=== PATIENT | female | born 1970 | race Caucasian/White ===

== ENCOUNTER 2022-09-20 02:46 | Emergency (ER) | payer MEDICAID ==
[~2022-09-20] VITALS: Ht 154.9 cm; Wt 65.3 kg
--- NOTE | 2022-09-20 02:53 | NUR ---
martina, c/o high bp, "i stopped taking my meds because it doesn't help"
[2022-09-20] MEDS ORDERED: hydrALAZINE HCL IV 20 MG VIAL ONE (03:10)
--- NOTE | 2022-09-20 03:29 | NUR ---
Hydralazine 5mg given as ordered.
[2022-09-20] MEDS ORDERED: hydrALAZINE HCL IV 20 MG VIAL IV ONE (03:30)
[2022-09-20 03:32] LABS: BASOPHILS # (AUTO) 0.1 K/uL (0.0-0.2); BASOPHILS % (AUTO) 1.1 % (0.0-2.0); EOSINOPHILS % (AUTO) 4.6 % (0.0-6.0); HEMATOCRIT 40 % (33-45); HEMOGLOBIN 13.6 g/dL (11.5-14.8); LYMPHOCYTES # (AUTO) 1.3 K/uL (0.8-4.8); LYMPHOCYTES % (AUTO) 25.4 % (20.0-44.0); MEAN CORPUSCULAR HGB CONC 34 g/dl (31.0-36.0); MEAN CORPUSCULAR VOLUME 87 fL (82-100); MONOCYTES # (AUTO) 0.4 K/uL (0.1-1.30); NEUTROPHILS # (AUTO) 3.2 K/uL (1.8-8.9); NEUTROPHILS % (AUTO) 61.9 % (43.0-81.0); PLATELET COUNT (AUTO) 180 K/uL (150-450); RED BLOOD CELL COUNT(AUTO) 4.57 MIL/uL (4.0-5.2); WHITE BLOOD COUNT (AUTO) 5.2 K/uL (4.3-11.0)
[2022-09-20 03:33] LABS: BILIRUBIN,URINE NEGATIVE (NEGATIVE); COLOR,URINE YELLOW (YELLOW); LEUKOCYTE ESTERASE ,URINE NEGATIVE (NEGATIVE); NITRITE, URINE NEGATIVE (NEGATIVE); PROTEIN,URINE NEGATIVE (NEGATIVE); UGLUCOSE NEGATIVE (NEGATIVE); UROBILINOGEN,URINE 0.2 EU/dL (0.2)
[2022-09-20 03:42] LABS: CALCIUM, SERUM 8.9 mg/dL (8.5-10.1); CARBON DIOXIDE 24 mmol/L (21-32); CHLORIDE 106 mmol/L (98-107); CREATININE 0.6 mg/dL (0.6-1.3); GLUCOSE 109 mg/dL (74-106); POTASSIUM 3.5 mmol/L (3.5-5.1); SODIUM SERUM 138 mmol/L (136-145); UREA NITROGEN, BLOOD 15 mg/dL (7-18)
[2022-09-20 03:47] LABS: ALANINE AMINOTRANSFERASE 21 U/L (12-78); ALBUMIN 3.9 g/dL (3.4-5.0); ALKALINE PHOSPHATASE 48 U/L (46-116); ASPARTATE AMINOTRANSFERASE 16 U/L (15-37); BILIRUBIN,DIRECT 0.1 mg/dL (0.0-0.2); BILIRUBIN,TOTAL 0.3 mg/dL (0.2-1.0); TOTAL PROTEIN, SERUM 7.1 g/dL (6.4-8.2)
--- NOTE | 2022-09-20 06:43 | NUR ---
Patient discharged to home in stable condition. Written and verbal after care instructions given. Patient verbalizes understanding of instruction.
[2022-09-20 06:44] VITALS: BP 142/93
== END 2022-09-20 06:44 | disposition home or self-care (01) ==
LOC: ER 02:52
DX: I16.0 Hypertensive urgency (principal); Z91.148 Patient's other noncompliance with medication regimen for other reason
CPT/HCPCS: 99285; 96374; 71045; 93005; 85025; 80048; 80076; 81003; 36415; 84484 ×2; 85730; J0360

== ENCOUNTER 2022-09-23 01:35 | Emergency (ER) | payer MEDICAID ==
[~2022-09-23] VITALS: Ht 154.9 cm; Wt 65.3 kg
--- NOTE | 2022-09-23 01:35 | NUR ---
[id number] from home c/o high bp. states new med not working
--- NOTE | 2022-09-23 01:58 | NUR ---
DR. TERRY AT BEDSIDE
--- NOTE | 2022-09-23 02:07 | NUR ---
X-RAY AT BEDSIDE
[2022-09-23] MEDS ORDERED: MECLIZINE HCL 25 MG TABLET ONE (02:15)
--- NOTE | 2022-09-23 02:20 | NUR ---
LAB AT BEDSIDE
[2022-09-23] MEDS ORDERED: MECLIZINE HCL 12.5 MG TABLET PO ONE (02:30)
[2022-09-23 02:33] LABS: BASOPHILS % (AUTO) 0.9 % (0.0-2.0); EOSINOPHILS % (AUTO) 3.8 % (0.0-6.0); HEMATOCRIT 39 % (33-45); HEMOGLOBIN 13.1 g/dL (11.5-14.8); LYMPHOCYTES # (AUTO) 1.5 K/uL (0.8-4.8); LYMPHOCYTES % (AUTO) 26.7 % (20.0-44.0); MEAN CORPUSCULAR HGB CONC 34 g/dl (31.0-36.0); MEAN CORPUSCULAR VOLUME 87 fL (82-100); MONOCYTES # (AUTO) 0.4 K/uL (0.1-1.30); MONOCYTES % (AUTO) 7.3 % (2.0-12.0); NEUTROPHILS # (AUTO) 3.5 K/uL (1.8-8.9); NEUTROPHILS % (AUTO) 61.3 % (43.0-81.0); PLATELET COUNT (AUTO) 180 K/uL (150-450); RED BLOOD CELL COUNT(AUTO) 4.41 MIL/uL (4.0-5.2); WHITE BLOOD COUNT (AUTO) 5.7 K/uL (4.3-11.0)
[2022-09-23 02:45] LABS: ALBUMIN 3.7 g/dL (3.4-5.0); BILIRUBIN,DIRECT 0.1 mg/dL (0.0-0.2); BILIRUBIN,TOTAL 0.3 mg/dL (0.2-1.0); CALCIUM, SERUM 9.3 mg/dL (8.5-10.1); CREATININE 0.7 mg/dL (0.6-1.3); POTASSIUM 3.5 mmol/L (3.5-5.1); TOTAL PROTEIN, SERUM 6.8 g/dL (6.4-8.2)
--- NOTE | 2022-09-23 04:27 | NUR ---
LAB AT BEDSIDE FOR REPEAT TROPONIN
[2022-09-23] MEDS ORDERED: MECL-159 PO (05:04)
[2022-09-23 05:45] VITALS: BP 110/64
--- NOTE | 2022-09-23 05:45 | NUR ---
Patient discharged to home in stable condition. Written and verbal after care instructions given. Patient verbalizes understanding of instruction.
== END 2022-09-23 05:45 | disposition home or self-care (01) ==
LOC: ER 01:36
DX: I10 Essential (primary) hypertension (principal); R42 Dizziness and giddiness
CPT/HCPCS: 99285; 71045; 93005; 85025; 80048; 80076; 84703; 36415; 84484 ×2; J8597

== ENCOUNTER 2023-04-05 01:34 | Emergency (ER) | payer MEDICAID ==
[~2023-04-05] VITALS: Ht 162.6 cm; Wt 61.2 kg
[~2023-04-05 01:34] MED LIST: MECL-159 PO
[2023-04-05] MEDS ORDERED: LORAZEPAM 1 MG TABLET ONE (01:56)
[2023-04-05] MEDS ORDERED: ONDANSETRON 4 MG TAB.RAPDIS ONE (01:56)
[2023-04-05] MEDS ORDERED: ONDANSETRON 4 MG TAB.RAPDIS SL ONE (02:00)
[2023-04-05] MEDS ORDERED: LORAZEPAM 1 MG TABLET PO ONE (02:00)
[2023-04-05 02:29] LABS: BASOPHILS % (AUTO) 0.3 % (0.0-2.0); EOSINOPHILS # (AUTO) 0.2 K/uL (0.0-0.7); HEMATOCRIT 37 % (33-45); HEMOGLOBIN 12.6 g/dL (11.5-14.8); LYMPHOCYTES # (AUTO) 1.4 K/uL (0.8-4.8); LYMPHOCYTES % (AUTO) 24.5 % (20.0-44.0); MEAN CORPUSCULAR HEMOGLOBIN 30 PG (26.0-33.0); MEAN CORPUSCULAR HGB CONC 34 g/dl (31.0-36.0); MEAN CORPUSCULAR VOLUME 87 fL (82-100); MONOCYTES # (AUTO) 0.4 K/uL (0.1-1.30); MONOCYTES % (AUTO) 7.8 % (2.0-12.0); NEUTROPHILS # (AUTO) 3.7 K/uL (1.8-8.9); NEUTROPHILS % (AUTO) 64.4 % (43.0-81.0); PLATELET COUNT (AUTO) 165 K/uL (150-450); RED BLOOD CELL COUNT(AUTO) 4.27 MIL/uL (4.0-5.2); RED CELL DISTRIBUTION WIDTH 12.8 % (11.5-15.0); WHITE BLOOD COUNT (AUTO) 5.7 K/uL (4.3-11.0)
[2023-04-05 03:20] LABS: CALCIUM, SERUM 8.8 mg/dL (8.5-10.1); CREATININE 0.7 mg/dL (0.6-1.3); POTASSIUM 3.4 mmol/L (3.5-5.1)
[2023-04-05 03:46] VITALS: BP 157/138; TEMP 98; O2SAT 99
== END 2023-04-05 03:46 | disposition home or self-care (01) ==
LOC: ER 01:36
DX: I10 Essential (primary) hypertension (principal); Z79.899 Other long term (current) drug therapy
CPT/HCPCS: 99285; 70450; 71045; 93005; 85025; 80048; 36415; 84484; Q0162